=== PATIENT | male | born 1965 | race Caucasian/White ===

== ENCOUNTER 2017-05-15 09:29 | Emergency (ER) | payer OTHER ==
[~2017-05-15] VITALS: Ht 188 cm; Wt 105.0 kg
[~2017-05-15 09:29] MED LIST: PRED5TAB MT
[2017-05-15 09:35] VITALS: BP 148/75; PULSE 87; RESP 16; TEMP 98.8; O2SAT 98
[2017-05-15] MEDS ORDERED: VENTAER INH (10:09)
[2017-05-15] MEDS ORDERED: ADVA100A INH (10:09)
[2017-05-15] MEDS ORDERED: PRED20 PO (10:09)
--- NOTE | 2017-05-15 10:09 | PD ---
HPI Chief Complaint: Fever Time Seen by Provider: 09:52 Travel History International Travel<30 days: No Contact w/Intl Traveler<30days: No Traveled to known affect area: No History of Present Illness HPI This patient reports that for the last 2 weeks he feels like he periodically gets a fever. He has not checked his temperature. He does not have any other symptoms to suggest infection. He has no vomiting or diarrhea or cough or runny nose or congestion or sore throat or shortness of breath or abdominal pain or urinary complaints. Current temperature is normal. Symptoms severity at this time is mild. He has not mentioned this to his primary doctor. [facility] Past Medical History COPD: Yes Diminished Hearing: No Respiratory: Yes (copd) Social History Alcohol Use: Yes Tobacco Use: Yes Substance Use: Yes Allergies-Medications (Allergen,Severity, Reaction): Coded Allergies: No Known Allergies (Unverified , 05/15/17) Reported Meds & Prescriptions Reported Meds & Active Scripts Active Reported Prednisone 5 Mg Tab 20 Mg MT DAILY Review of Systems General / Constitutional: Positive: Fever Eyes: No: Visual changes HENT: No: Headaches Cardiovascular: No: Chest Pain or Discomfort Respiratory: No: Shortness of Breath Gastrointestinal: No: Abdominal Pain Genitourinary: No: Dysuria Musculoskeletal: No: Pain Skin: No Rash Neurologic: No: Weakness Psychiatric: No: Depression Endocrine: No: Polydipsia Hematologic/Lymphatic: No: Easy Bruising Physical Exam Narrative GENERAL: Well-nourished, well-developed patient in no apparent distress. SKIN: Focused skin assessment reveals no rash and nodules. Skin is Warm and dry. HEAD: Atraumatic. Normocephalic. EYES: Pupils equal and round. No scleral icterus. No injection or drainage. ENT: No nasal bleeding or discharge. Mucous membranes pink and moist. Throat clear and TMs normal NECK: Trachea midline. No JVD. No meningeal signs CARDIOVASCULAR: Regular rate and rhythm. No murmur appreciated. RESPIRATORY: No accessory muscle use. Clear to auscultation. Breath sounds equal bilaterally. GASTROINTESTINAL: Abdomen soft, non-tender, nondistended. Hepatic and splenic margins not palpable. MUSCULOSKELETAL: No obvious deformities. No clubbing. No cyanosis. No edema. NEUROLOGICAL: Awake and alert. No obvious cranial nerve deficits. Motor grossly within normal limits. Normal speech. PSYCHIATRIC: Appropriate mood and affect; insight and judgment normal. Data Data Last Documented VS Vital Signs Date Time Temp Pulse Resp B/P (MAP) Pulse Ox O2 Delivery O2 Flow Rate FiO2 05/15/17 09:35 98.8 87 16 148/75 (99) 98 MDM Medical Decision Making Medical Screen Exam Complete: Yes Emergency Medical Condition: Yes Medical Record Reviewed: Yes Differential Diagnosis Flu syndrome, fever of unknown origin, pharyngitis Narrative Course I have reviewed the patient's electronic medical record. Patient was here for alcohol induced mood disorder and 2015 Patient's vital signs and examination are normal and he is not symptomatic now His temperature is normal Certainly not clear that he's been having fevers as he is never checked his temperature. We had a lengthy discussion. I don't think it's good for me to throw antibiotics at him when we don't know what we are treating He does not need emergent testing. He should follow-up with his primary physician I recommend he obtain a thermometer and check and record his temperature when he feels like he has a fever. Diagnosis Primary Impression: Febrile illness Additional Instructions: The patient was advised to follow up with their physician and return if they worsen. Check and record temperature periodically Med/Other Pt SpecificInfo: Other Disposition: 01 DISCHARGE HOME Condition: Stable Mathew Eckert MD May 15, 2017 10:09
== END 2017-05-15 10:23 | disposition home or self-care (01) ==
LOC: PHED 09:29
DX: R50.9 Fever, unspecified (principal); J44.9 Chronic obstructive pulmonary disease, unspecified; F17.210 Nicotine dependence, cigarettes, uncomplicated
CPT/HCPCS: 99281